=== PATIENT | female | born 1965 | race Caucasian/White ===

== ENCOUNTER → 2018-08-02 | Outpatient (CLI) | payer OTHER | END | disposition home or self-care (01) | LOC: CFH 13:57 | PROVIDERS: ATTEND Nurse Practitioner Family | DX: Z12.31 Encounter for screening mammogram for malignant neoplasm of breast (principal) | CPT/HCPCS: 77063; 77067 ==

== ENCOUNTER → 2019-08-08 | Outpatient (CLI) | payer OTHER ==
[~2019-08-08] MED LIST: DEXT5TAB17 PO; HYDR-3241 PO; LIDO35.46 TP
== END | disposition home or self-care (01) ==
LOC: CFH 07:10
PROVIDERS: ATTEND Nurse Practitioner Family
DX: Z12.31 Encounter for screening mammogram for malignant neoplasm of breast (principal)
CPT/HCPCS: 77063; 77067

== ENCOUNTER → 2020-05-15 | Outpatient (CLI) | payer OTHER | END | disposition home or self-care (01) | LOC: RAD 13:50 | PROVIDERS: ATTEND Orthopaedic Surgery | DX: M17.12 Unilateral primary osteoarthritis, left knee (principal) | CPT/HCPCS: 77073 ==

== ENCOUNTER → 2020-06-26 | Outpatient (CLI) | payer OTHER ==
[~2020-06-26] MED LIST changes: +IBUP-1223 PO; +NAPR220C2 PO
[2020-06-26 09:38] LABS: BASOPHILS % (AUTO) 1 % (0-1); EOSINOPHILS % (AUTO) 5 % (1-7); LYMPHOCYTES % (AUTO) 46 % (22-44); MEAN CORPUSCULAR HEMOGLOBIN 27.6 pg (27.0-34.8); MEAN CORPUSCULAR HGB CONC 33.1 g/dL (32.4-35.8); MEAN PLATELET VOLUME 9.4 fL (7.4-10.4); MONOCYTES % (AUTO) 9 % (2-9); NEUTROPHILS % (AUTO) 39 % (42-75); PLATELET COUNT 171 x10^3/uL (130-400); RED BLOOD COUNT 4.18 x10^6/uL (3.82-5.3); RED CELL DISTRIBUTION WIDTH 14.1 % (9.6-15.2)
[2020-06-26 09:45] LABS: INTERNATIONAL NORMALIZED RATIO 0.96 (0.93-1.1); PROTHROMBIN TIME 10.2 Seconds (9.6-11.5)
[2020-06-26 09:46] LABS: ANION GAP 8 mmol/L (5-15); CHLORIDE 122 mmol/L (98-107); CREATININE 0.82 mg/dL (0.55-1.02)
[2020-06-26 09:56] LABS: MD SCAN
== END | disposition home or self-care (01) ==
LOC: STAR 07:22
PROVIDERS: ATTEND Orthopaedic Surgery
DX: Z01.812 Encounter for preprocedural laboratory examination (principal); Z20.828 Contact with and (suspected) exposure to other viral communicable diseases; M17.12 Unilateral primary osteoarthritis, left knee; Z79.01 Long term (current) use of anticoagulants
CPT/HCPCS: 80048; 83036; 85025; 85610; 85730; 87081; 87147; 87635; 87806; G0475

== ENCOUNTER 2020-07-02 10:36 | Observation (INO) | payer OTHER ==
[~2020-07-02] VITALS: Ht 160 cm; Wt 68.2 kg
[2020-07-02] MEDS ORDERED: ACETAMINOPHEN 500 MG TABLET PO STA (11:01)
[2020-07-02] MEDS ORDERED: GABAPENTIN 300 MG CAPSULE PO STA (11:01)
[2020-07-02 11:02] VITALS: BP 112/70
[2020-07-02] MEDS ORDERED: CHLORHEXIDINE 15 ML UDC ONE (11:08)
[2020-07-02] MEDS ORDERED: LACTATED RINGERS 1,000 ML IV SCH (11:30)
[2020-07-02] MEDS ORDERED: CHLORHEXIDINE 15 ML UDC MM ONE (11:30)
[2020-07-02] MEDS ORDERED: FENTANYL PF 250 MCG/5ML ONE (11:33)
[2020-07-02] MEDS ORDERED: MIDAZOLAM 1 MG/ML, 2ML ONE (11:33)
[2020-07-02] MEDS ORDERED: DEXAMETHASONE 4 MG/ML, 1ML ONE (12:28)
[2020-07-02] MEDS ORDERED: POLYETHYLENE GLYCOL 17 GM PACKET PO PRN (12:30)
[2020-07-02] MEDS ORDERED: ACETAMINOPHEN 650 MG/20.3 ML UDC PO PRN (12:30)
[2020-07-02] MEDS ORDERED: OXYcodone IR 5MG TABLET PO PRN (12:30)
[2020-07-02] MEDS ORDERED: POTASSIUM CHLORIDE 20 MEQ in D5%-0.45% NACL 1,000 ML IV SCH (12:30)
[2020-07-02] MEDS ORDERED: PROMETHAZINE 25 MG/ML, 1ML IM PRN (12:30)
[2020-07-02] MEDS ORDERED: PSYLLIUM PACKET PO PRN (12:30)
[2020-07-02] MEDS ORDERED: ALUMINUM/MAG/SIMETHICONE 30 ML UDC PO PRN (12:30)
[2020-07-02] MEDS ORDERED: SENNA/DOCUSATE TABLET PO PRN (12:30)
[2020-07-02] MEDS ORDERED: DIPHENHYDRAMINE 50 MG/ML, 1ML IVPush PRN (12:30)
[2020-07-02] MEDS ORDERED: KETOROLAC 30 MG/1 ML IV SCH (12:30)
[2020-07-02] MEDS ORDERED: HYDROmorphone 1 MG/ML, 1ML INJ IVPush PRN ×2 (12:30→13:30)
[2020-07-02] MEDS ORDERED: ONDANSETRON 4 MG TABLET PO PRN (12:30)
[2020-07-02] MEDS ORDERED: DEXAMETHASONE 4 MG/ML, 1ML IVPush SCH (12:30)
[2020-07-02] MEDS ORDERED: METOCLOPRAMIDE 5 MG/ML, 2ML IVPush PRN (12:30)
[2020-07-02] MEDS ORDERED: MAGNESIUM HYDROXIDE 8%, 30ML UDC PO PRN (12:30)
[2020-07-02] MEDS ORDERED: ONDANSETRON 2MG/ML, 2ML IVPush PRN (12:30)
[2020-07-02] MEDS ORDERED: DIPHENHYDRAMINE 50 MG CAPSULE PO PRN (12:30)
[2020-07-02] MEDS ORDERED: PROPOFOL 50 ML ONE (12:33)
[2020-07-02] MEDS ORDERED: DIAZEPAM 5 MG/ML, 2ML IVPush PRN (13:30)
[2020-07-02] MEDS ORDERED: MEPERIDINE/PF 25MG/0.5ML IVPush PRN (13:30)
[2020-07-02] MEDS ORDERED: PROMETHAZINE 25 MG/ML, 1ML IVPush PRN (13:30)
[2020-07-02] MEDS ORDERED: METHOCARBAMOL 1,000 MG in DEXTROSE 5% 100 ML IV PRN (13:30)
[2020-07-02] MEDS ORDERED: ACETAMINOPHEN 325 MG TABLET PO PRN (13:30)
[2020-07-02] MEDS ORDERED: PROPOFOL 10 MG/ML, 20ML ONE (13:32)
[2020-07-02] MEDS ORDERED: ONDANSETRON 2MG/ML, 2ML ONE (13:32)
[2020-07-02] MEDS ORDERED: CEFAZOLIN 1,000 MG ONE (13:32)
[2020-07-02] MEDS ORDERED: TRANEXAMIC ACID 1,000 MG in SODIUM CHLORIDE 0.9% 100 ML IVPB ONE (13:59)
[2020-07-02] MEDS ORDERED: FENTANYL PF 100 MCG/2ML ONE (14:15)
[2020-07-02] MEDS: FENTANYL PF 100 MCG/2ML IV PRN ×2 (14:17→14:33)
[2020-07-02] MEDS ORDERED: OXYcodone 5 MG/5 ML ORAL.SOL UDC ONE ×3 (14:34→17:50)
[2020-07-02] MEDS: OXYcodone 5 MG/5 ML ORAL.SOL UDC PO PRN ×3 (14:36→17:51)
[2020-07-02] MEDS ORDERED: CEFAZOLIN PMX 1GM/50ML 50 ML IVPB SCH (21:00)
[2020-07-02] MEDS ORDERED: DOCUSATE 100 MG CAPSULE PO SCH (21:00)
[2020-07-03] MEDS ORDERED: ASPIRIN 81 MG TABLET EC PO SCH (06:00)
[2020-07-03] MEDS ORDERED: TAMSULOSIN 0.4 MG CAP.ER.24H PO SCH (09:00)
== END 2020-07-02 18:20 | disposition home or self-care (01) ==
LOC: OUT 10:36 → ORIP 12:26
PROVIDERS: ADMIT Orthopaedic Surgery; ATTEND Orthopaedic Surgery
DX: M17.12 Unilateral primary osteoarthritis, left knee (principal); M71.22 Synovial cyst of popliteal space [Baker], left knee; Z79.899 Other long term (current) drug therapy
CPT/HCPCS: 27447; 73560; 97162; C1713; C1776; G0378; J0690; J1100; J1885; J2250; J2405; J2704; J2795; J2800; J3010; J3370; J7120

== ENCOUNTER 2020-08-10 08:09 | Outpatient (CLI) | payer OTHER | END 2020-08-10 23:59 | disposition home or self-care (01) | LOC: CFH 08:09 | PROVIDERS: ATTEND Nurse Practitioner | DX: Z12.31 Encounter for screening mammogram for malignant neoplasm of breast (principal) | CPT/HCPCS: 77063; 77067 ==